=== PATIENT | male | born 1990 | race Two or more races ===

== ENCOUNTER 2020-07-01 12:50 | Emergency (ER) | payer MEDICAID, OTHER ==
[~2020-07-01] VITALS: Ht 170.2 cm; Wt 61.2 kg
[2020-07-01 12:52] VITALS: BP 118/90
== END 2020-07-01 20:17 | disposition left against medical advice (07) ==
LOC: ER 12:50
DX: R07.89 Other chest pain (principal); F17.210 Nicotine dependence, cigarettes, uncomplicated; R51.9 Headache, unspecified
CPT/HCPCS: 71045; 93005